=== PATIENT | male | born 1935 | race Caucasian/White ===

== ENCOUNTER 2016-12-31 15:53 | Emergency (ER) | payer MEDICARE, OTHER ==
[~2016-12-31 15:53] MED LIST: AMIT25 PO; CORDARONE PO; FLOMAX4 PO; FOLIC PO; HALF81 PO; HYDROCHLOROT25 MG PO; INDE60 PO; KLOR-CON M2020 MEQ PO; KLOR-CON20 MEQ PO; METAGLIP1 TA2 PO; METFORMIN; NIVOLUMAB IV; NORCO1 TAB PO; PRILO PO; Z300 PO; ZESTRIL20 MG PO; ZOCOR20 PO; [UNRECOGNIZED DRUG - OTHER]
[2016-12-31 16:00] LABS: BASOPHILS 0.1 %; BASOPHILS ABSOLUTE 0.01 10/3/uL (0.0-0.16); EOSINOPHILS 1.5 %; EOSINOPHILS ABSOLUTE 0.18 10/3/uL (0.0-0.53); ER CBC TAT 0 Hrs 12 Mins; HEMATOCRIT 37.7 % (40.0-51.0); HEMOGLOBIN 12.2 g/dL (13.6-17.8); IMMATURE GRANULOCYTES 0.6 %; IMMATURE GRANULOCYTES ABSOLUTE 0.07 10/3/uL (0.0-0.11); LYMPHOCYTES 17.3 %; LYMPHOCYTES ABSOLUTE 2.05 10/3/uL (0.67-4.30); MEAN CORPUS HGB CONC 32.4 g/dL (32.0-36.0); MEAN CORPUSCULAR VOLUME 92.9 fL (80-100); MONOCYTES 6.2 %; MONOCYTES ABSOLUTE 0.74 10/3/uL (0.21-1.20); NEUTROPHILS 74.3 %; PLATELET COUNT 168 10/3/uL (150-400); RBC DISTRIBUTION WIDTH 14.2 % (12.0-16.0); RED CELL COUNT 4.06 10/6/uL (4.7-6.1); WHITE BLOOD CELLS 11.9 10/3/uL (4.5-10.5)
[2016-12-31 16:01] LABS: MANUAL DIFF NO %
[2016-12-31 16:04] LABS: INTERNATIONAL NORMAL RATI 1.2 UNITS (-); PROTIME (NOT ORD) 14.6 SEC (12.0-14.5)
[2016-12-31 16:11] LABS: A/G RATIO 0.9 (0.7-1.9); ALBUMIN 3.6 G/DL (3.5-5.0); ALKALINE PHOSPHATASE 108 U/L (45-117); BUN (BLOOD UREA NITROGEN) 30 MG/DL (6-23); CALCIUM, SERUM 9.1 MG/DL (8.5-10.4); CHLORIDE, SERUM 105 MMOL/L (96-112); CO2 (CARBON DIOXIDE) 27 MMOL/L (24-34); CREATININE 1.48 MG/DL (0.70-1.30); GFR AFRICAN AMERICAN 51 ML/MIN (>=60); GFR NON AFRICAN AMERICAN 44 ML/MIN (>=60); GLOBULIN 3.8 G/DL (2.5-4.1); GLUCOSE, SERUM 94 MG/DL (60-99); POTASSIUM, SERUM 3.6 MMOL/L (3.5-5.3); SGOT(AST) 16 U/L (5-40); SGPT(ALT) 17 U/L (5-65); SODIUM, SERUM 144 MMOL/L (135-148); TOTAL PROTEIN 7.4 G/DL (6.0-8.5)
[2017-05-06] MEDS ORDERED: MARI2.5 PO (13:12)
[2017-05-06] MEDS ORDERED: AMB10 PO (13:14)
[2017-05-06] MEDS ORDERED: SUCR PO (13:21)
[2017-05-09] MEDS ORDERED: OMNICEF300 PO (15:27)
== END 2016-12-31 17:40 | disposition home or self-care (01) ==
LOC: ER 15:53
PROVIDERS: Emergency Medicine
DX: R51 Headache (principal); Z87.891 Personal history of nicotine dependence; I48.91 Unspecified atrial fibrillation; Z87.442 Personal history of urinary calculi; Z85.830 Personal history of malignant neoplasm of bone; Z85.118 Personal history of other malignant neoplasm of bronchus and lung; Z79.899 Other long term (current) drug therapy; Z79.82 Long term (current) use of aspirin; Z79.84 Long term (current) use of oral hypoglycemic drugs
CPT/HCPCS: 70470; 71010; 80053; 85025; 85610; 93005; 99285

== ENCOUNTER 2017-03-19 17:59 | Inpatient (IN) | payer MEDICARE, OTHER ==
--- NOTE | ~2017-03-19 | HP ---
History And Physical [place] [id number] [facility] [place]. [address] NAME: ADALI KAUR : 39 STATUS : ADM [place] PAT#: [id number] AGE: 81 ADM/REG DATE : 03/19/17 MR#: [id number] REPORT SERV DATE: 03/19/17 DICTATED BY: ARIELLE LUND DATE: 03/19/17 REPORT STATUS : Draft TRANSCRIBED BY: MODL DATE: 03/19/17 DATE OF ADMISSION: 03/19/2017 CHIEF COMPLAINT: A 81-year-old male presenting with back pain, dysuria, and nausea. HISTORY OF PRESENT ILLNESS: The patient's history was obtained through an interview with the patient, two sons and daughter coupled with review of [employer] and [facility] medical records. For about four days now, the patient has had decreased appetite with nausea, gagging, dry heaves but no actual vomiting. He has developed dysuria and urinary frequency. He admits that he has significant prostate symptoms including a feeling as if he is never quite completely emptying his bladder and slow urine flow with dribbling. He describes fevers, chills, sweats. He has been concerned about epigastric abdominal discomfort, "empty feeling" in quality that radiates down to his navel, 6/10 severity, associated with reflux symptoms and feeling of "knots" going up his esophagus with acid. 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 He has undergone chemotherapy and radiation followed by Dr. Alex Goodrich and Dr. Doshi, radiation oncologist. He has chronic shortness of breath, chronic nonproductive cough, and left sinus drainage; all these seem to be chronic and stable though. He does admit to constant lower back pain which he attributes to his metastatic lung cancer to his bones. It gets to a 10/10 constant pain for which he takes chronic pain medications. REVIEW OF SYSTEMS: Otherwise, a 14-point review of systems was obtained and was negative. PAST MEDICAL HISTORY: 1. Lung cancer diagnosed in 2015 status post chemotherapy radiation. This is an adenocarcinoma with metastases to the bone, followed by Dr. Doshi, radiation oncologist and Dr. Alex Goodrich, oncologist. 2. Diabetes. The patient states "I ran out of strips" so he is not sure how good control he has over his diabetes. He is on oral medications only. 3. Nephrolithiasis with history of lithotripsies and stent placement under the care of Dr. Lindsey. 4. Atrial fibrillation. 5. Hypertension. 6. Hypothyroidism. 7. Neuropathy. 8. Urinary tract infections, previously with Staph. 9. Superficial vein thrombosis. 10.Peptic ulcer disease. History And Physical [address] [address] NAME: ADALI KAUR : 37 STATUS : ADM [place] PAT#: [id number] AGE: 81 ADM/REG DATE : 03/19/17 MR#: [id number] REPORT SERV DATE: 03/19/17 DICTATED BY: ARIELLE LUND DATE: 03/19/17 REPORT STATUS : Draft TRANSCRIBED BY: IRON DATE: 03/19/17 11.Colon polyps. 12.Obstructive sleep apnea, on CPAP. 13.Gout. PAST SURGICAL HISTORY: 1. Cholecystectomy. 2. Right inguinal hernia repair. ALLERGIES: NO KNOWN DRUG ALLERGIES. SOCIAL HISTORY: Smoked between 18 years of age and 37 years of age, one pack per day but has quit since then. No alcohol abuse. Has been a for 14 years now. He lives in [place], [place] alone. Retired from sales. He has two sons and a daughter who live close. FAMILY HISTORY: Father with liver disease, a very strong family history of nephrolithiasis. CURRENT MEDICATIONS: Include allopurinol 300 mg p.o. daily, amiodarone 100 mg p.o. daily, Elavil 10 mg p.o. at bedtime, aspirin 81 mg p.o. daily, Temovate cream, Marinol 2.5 mg p.o. t.i.d., folic acid daily, Neurontin 300 mg p.o. t.i.d., glyburide/metformin 5/500 p.o. b.i.d., hydrochlorothiazide 25 mg p.o. daily, hydrocodone p.r.n., Synthroid 50 mcg p.o. daily, lisinopril 5 mg p.o. daily, Prilosec 20 mg p.o. daily, potassium 20 mEq p.o. daily, Phenergan, Inderal 60 mg p.o. at bedtime, Zocor 20 mg p.o. daily, and Flomax 0.4 mg p.o. daily. PHYSICAL EXAMINATION: VITAL SIGNS: Temperature 98.4, pulse 107, blood pressure 165/79, respiratory rate 20, and O2 saturation 94% on room air. GENERAL: A pleasant, cooperative male, in evidence of mild distress from back pain but he does not appear toxic. HEENT: Pupils are equal, round, and reactive to light. No conjunctival pallor. No scleral icterus. Nares are patent. Oropharynx is clear of obstruction. Dry mucous membranes. NECK: Trachea midline. No thyromegaly. LYMPH: No cervical lymphadenopathy. No supraclavicular lymphadenopathy. No inguinal lymphadenopathy. RESPIRATORY: Clear to auscultation at bases. No wheezes, rales, or rhonchi. Normal respiratory effort. CARDIOVASCULAR: Tachycardic regular rhythm. No murmurs, rubs, or gallops. No extremity edema is appreciated. ABDOMEN: Significant suprapubic abdominal discomfort and epigastric abdominal discomfort but no guarding, no rebound. Nondistended. No hepatosplenomegaly. DERMATOLOGICAL: Warm and dry extremities. No pallor. No cyanosis. PSYCHIATRIC: Normal affect. Good mood. Alert and oriented x3. LABORATORY DATA: White blood cell count 11.5, hemoglobin 13, hematocrit 38, platelets 212. Sodium 139, potassium 4.3, chloride 105, bicarb 26, BUN 14, creatinine 1.05, glucose 195. Urinalysis shows large leukocyte esterase with greater than 182 white blood cells. Troponin History And Physical [address] [address] NAME: AADLI KAUR : 37 STATUS : ADM [place] PAT#: [id number] AGE: 81 ADM/REG DATE : 03/19/17 MR#: [id number] REPORT SERV DATE: 03/19/17 DICTATED BY: ARIELLE LUND DATE: 03/19/17 REPORT STATUS : Draft TRANSCRIBED BY: MODL DATE: 03/19/17 0.20, INR 1.1. STUDIES: 1. Chest x-ray by my own evaluation shows no acute cardiopulmonary process. 2. EKG by my own evaluation shows sinus tachycardia, left ventricular hypertrophy. 3. 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 ASSESSMENT AND PLAN: 1. Urinary tract infection. Check urine culture. Place on IV antibiotics. For now, we will include IV vancomycin because of history of Staph urinary tract infections but also include IV Rocephin. Consult urologist Dr. Lindsey. There is no evidence of urinary obstruction by CT scan at least. 2. Metastatic lung adenocarcinoma to the bones with significant spine pain. Consult Dr. Alex Goodrich, oncologist. 3. Diabetes. Check hemoglobin A1c. Place on sliding scale insulin. 4. Atrial fibrillation, not on anticoagulation. Aspirin only. The patient is on amiodarone. Check telemetry. 5. Elevated troponin, possible stress response ?. Follow closely. Negative EKG. No chest pain. 6. Obstructive sleep apnea. Continue CPAP. KPL/MODL Arielle Lund M.D. / [id number] CC: Maricel Dasilva M.D. Davey B. Daniel, M.D.
--- NOTE | ~2017-03-19 | DS ---
Discharge Summary [facility] [address] [place]. [address] NAME: ADALI FERNANDES : 39 STATUS : DIS IN PAT#: [id number] AGE: 81 ADM/REG DATE : 03/19/17 MR#: [id number] REPORT SERV DATE: 03/22/17 DICTATED BY: ERMA ANGELES DATE: 03/21/17 REPORT STATUS : Draft TRANSCRIBED BY: MODL DATE: 03/21/17 ADMISSION DATE: 03/19/2017 DISCHARGE DATE: 03/21/2017 REASON FOR ADMISSION: UTI, increased pain, dizziness. HISTORY OF PRESENT ILLNESS: Please refer to Dr. Trenton Reddy's history and physical dated 03/19/2017 for complete details regarding the patient's admission. In brief, the patient was admitted to the Hospitalist Service for management of acute cystitis. HOSPITAL COURSE: The patient had an uncomplicated hospital course. He presented with a dirty urine and Dr. Reddy had started him on IV vancomycin because of a history of Staph urinary tract infections along with IV Rocephin. He had consulted his urologist, Dr. Lindsey. Dr. Hall was covering. The patient does have known history of nephroliths and Dr. Hall had recommended just continuing IV fluids, following up urine culture, and treating his BPH. The patient was started on Decadron for his complaint of worsening pain that was likely secondary to his metastatic disease. Physical Therapy had evaluated the patient and recommended home with home PT and a walker. After giving IV fluids, antibiotics, and pain control, the patient is feeling much better. He is actually requesting to go home today. He has reached maximal hospitalization. He will be discharged home in a stable condition. DISCHARGE DIAGNOSES: Acute cystitis with nephroliths; right lower quadrant pain, likely secondary to nephroliths; dizziness; gait abnormality; benign prostatic hypertrophy; stage IV non-small cell lung cancer, T2 N2 M1B, status post chemotherapy and radiation, followed by Dr. Alex Goodrich. PROCEDURE: Include consultation by Dr. Neto Hall, chest x-ray, CT scan of the abdomen and pelvis without contrast. DISCHARGE MEDICATIONS: Include allopurinol 300 mg daily, Elavil 10 mg at bedtime, aspirin 81 mg daily, amiodarone 100 mg at bedtime, Marinol 2.5 mg three times a day, folic acid 1 mg daily, gabapentin 300 mg three times a day, Synthroid 50 mcg daily, Prinivil 5 mg every day, Prilosec 20 mg daily, Inderal 60 mg daily, Zocor 20 mg at bedtime, Flomax 0.4 mg daily, hydrochlorothiazide 12.5 mg daily, [place] 10/325 p.r.n. pain, potassium chloride 20 mEq daily, Glucovance 5/500 one tablet twice a day, Phenergan p.r.n., Medrol Dosepak for six days, and doxycycline 100 mg twice a day for four days. FOLLOWUP: The patient will follow up with Dr. Alex Goodrich. We will arrange for home health and home PT along with a rolling walker. This is Dr. Erma Angeles spending over 30 minutes discharge planning and coordination of care of Mr. Fernandes. DICTATED BY: Erma Angeles MD Discharge Summary [address] [address] NAME: ADALI FERNANDSE : 37 STATUS : DIS IN PAT#: [id number] AGE: 81 ADM/REG DATE : 03/19/17 MR#: [id number] REPORT SERV DATE: 03/22/17 DICTATED BY: ERMA ANGELES DATE: 03/21/17 REPORT STATUS : Draft TRANSCRIBED BY: IRON DATE: 03/21/17 GILDARDO Erma Angeles MD / [id number] CC: MD Fernando Vazquez M.D. Davey B. Daniel, M.D.
--- NOTE | ~2017-03-19 | CN ---
Consultation Report [facility] [address] [place]. [address] NAME: ADALI FERNANDES : 39 STATUS : ADM IN [facility]#: [id number] AGE: 81 ADM/REG DATE : 03/19/17 MR#: [id number] REPORT SERV DATE: 03/20/17 DICTATED BY: MARCIAL JESSICA DATE: 03/20/17 REPORT STATUS : Draft TRANSCRIBED BY: MODL DATE: 03/20/17 INPATIENT CONSULTATION DATE OF CONSULTATION: 03/20/2017 REASON FOR CONSULTATION: Urinary tract infection. HISTORY OF PRESENT ILLNESS: Mr. Fernandes is a 81-year-old white gentleman with a past medical history of BPH and nephrolithiasis, treated by Dr. Lindsey, who unfortunately is also being managed for metastatic lung cancer. He was admitted through the hospital emergency department last evening with abdominal and flank pain. A thorough evaluation while in the emergency department revealed likely urinary tract infection. He had a CT of the abdomen and pelvis, which showed multiple nonobstructing bilateral intrarenal calculi without any acute findings. He was admitted to the hospital and started on vancomycin and Rocephin. More recently, he complains of some urinary hesitancy and slow urinary stream. He does take Flomax on a daily basis. He otherwise denies fever, chills, nausea, or vomiting. PAST MEDICAL HISTORY: Obstructive sleep apnea, atrial fibrillation, diabetes, metastatic lung cancer, nephrolithiasis, urinary tract infections, history of staphylococcus UTIs, hypertension, thyroid difficulties, arthritis. PAST SURGICAL HISTORY: As above. Cholecystectomy and right cataract. SOCIAL HISTORY: . Lives alone. Past smoker. Does not use alcohol or illicit drugs. FAMILY HISTORY: No urologic problems. HOME MEDICATIONS: Zyloprim, amiodarone, Elavil, aspirin, Temovate cream, Marinol, folic acid, Neurontin, Glucovance, hydrochlorothiazide, [place], Synthroid, Prinivil, Prilosec, potassium chloride, Phenergan, Inderal, Zocor, tamsulosin. ALLERGIES: NO KNOWN DRUG ALLERGIES. REVIEW OF SYSTEMS: Thorough 13-point review of systems was performed by me and if not noted to be positive in the history of present illness or past medical history, is negative. PHYSICAL EXAMINATION: GENERAL: Elderly gentleman, in no distress. VITAL SIGNS: Admission vitals, temperature 98.4, pulse 107, respirations 20, blood pressure 165/79. HEENT: Normocephalic and atraumatic. Eyes are anicteric. Nares are patent. Oropharynx is clear. NECK: Supple. Consultation Report [address] [place]. [address] NAME: ADALI FERNANDES : 39 STATUS : ADM IN [facility]#: [id number] AGE: 81 ADM/REG DATE : 03/19/17 MR#: [id number] REPORT SERV DATE: 03/20/17 DICTATED BY: MARCIAL JESSICA DATE: 03/20/17 REPORT STATUS : Draft TRANSCRIBED BY: IRON DATE: 03/20/17 HEART: Regular rate and rhythm. ABDOMEN: Protuberant. No involuntary guarding or rebound. No CVA tenderness. INTEGUMENT: Warm. MUSCULOSKELETAL: Moves all extremities well. NEUROLOGIC: No focal deficits. PSYCHIATRIC: Pleasant and appropriate. LABORATORY DATA: White blood cell count 11,500. Creatinine 1.05, glucose 195. Urinalysis, 6 red blood cells, greater than 182 white blood cells per high-power field. Urine cultures pending. IMAGING: Please see my impressions regarding the CT of the abdomen and pelvis as above. ASSESSMENT: 1. Urinary tract infection. 2. Nephrolithiasis, nonobstructing. 3. Benign prostatic hypertrophy with obstruction. PLAN: I discussed this with the patient and his nurse. We can check a bladder scan and postvoid residual to ensure that he is emptying his bladder. Otherwise, I would await his final urine cultures and continue on presumptive antibiotics until those cultures are back. RAC/BELLAL Marcial Jessica M.D. / [id number] CC: MD Fernando Vazquez M.D. Paul Henson III, M.D.
[2017-03-19 16:45] LABS: BASOPHILS 0.2 %; BASOPHILS ABSOLUTE 0.02 10/3/uL (0.0-0.16); EOSINOPHILS 0.8 %; EOSINOPHILS ABSOLUTE 0.09 10/3/uL (0.0-0.53); ER CBC TAT 0 Hrs 09 Mins; HEMATOCRIT 38.5 % (40.0-51.0); HEMOGLOBIN 12.7 g/dL (13.6-17.8); IMMATURE GRANULOCYTES 0.6 %; IMMATURE GRANULOCYTES ABSOLUTE 0.07 10/3/uL (0.0-0.11); MEAN CORPUSCULAR HEMOGLOB 29.6 pg (26.0-34.0); MEAN PLATELET VOLUME 10.7 fL (9.2-13.0); MONOCYTES 6.3 %; MONOCYTES ABSOLUTE 0.73 10/3/uL (0.21-1.20); NEUTROPHILS 79.1 %; NEUTROPHILS ABSOLUTE 9.11 10/3/uL (2.02-8.40); PLATELET COUNT 212 10/3/uL (150-400); RBC DISTRIBUTION WIDTH 13.7 % (12.0-16.0); RED CELL COUNT 4.29 10/6/uL (4.7-6.1); WHITE BLOOD CELLS 11.5 10/3/uL (4.5-10.5)
[2017-03-19 16:46] LABS: MANUAL DIFF NO %; MEAN CORPUSCULAR VOLUME 89.7 fL (80-100)
[2017-03-19 16:53] LABS: INTERNATIONAL NORMAL RATI 1.1 UNITS (-); PARTIAL THROMBO TIME 24.9 SEC (22.5-37.2); PROTIME (NOT ORD) 14.1 SEC (12.0-14.5)
[2017-03-19 17:00] LABS: BUN (BLOOD UREA NITROGEN) 14 MG/DL (6-23); CALCIUM, SERUM 9.6 MG/DL (8.5-10.4); CHLORIDE, SERUM 105 MMOL/L (96-112); CO2 (CARBON DIOXIDE) 26 MMOL/L (24-34); CREATININE 1.05 MG/DL (0.70-1.30); GFR AFRICAN AMERICAN 78 ML/MIN (>=60); GFR NON AFRICAN AMERICAN 67 ML/MIN (>=60); POTASSIUM, SERUM 4.3 MMOL/L (3.5-5.3); SODIUM, SERUM 139 MMOL/L (135-148)
[2017-03-19 17:01] LABS: CHEST PAIN PROFILE TAT 0 Hrs 25 Mins; GLUCOSE, SERUM 195 MG/DL (60-99)
[2017-03-19 18:19] LABS: ASCORBIC ACID (UR NOT ORDER) NEG (NEG); BILIRUBIN, URINE NEGATIVE (NEG); KETONE, URINE TRACE MG/DL (NEG); LEUKOCYTE ESTERASE(NOT OR LARGE (NEG); NITRITE (URINE) NEG (NEG)
[2017-03-19 18:22] LABS: ALBUMIN 3.7 G/DL (3.5-5.0); CPK 60 U/L (0-200); DIRECT BILIRUBIN 0.1 MG/DL (0.0-0.4); SGOT(AST) 24 U/L (5-40); SGPT(ALT) 22 U/L (5-65); TOTAL PROTEIN 7.7 G/DL (6.0-8.5)
[2017-03-19 18:22] LABS: ER URINALYSIS TAT 0 Hrs 33 Mins; WBC (NOT ORDERED) (RFLEX) > 182 (0-5)
[2017-03-19 18:23] LABS: ALKALINE PHOSPHATASE 144 U/L (45-117); CK-MB 0.8 NG/ML; INDIRECT BILIRUBIN(NOT ORDER) 0.4 MG/DL (0.1-0.9); TOTAL BILIRUBIN 0.5 MG/DL (0-1.2)
[2017-03-19] MEDS ORDERED: NEUR300 PO (19:46)
[2017-03-19] MEDS ORDERED: METAGLIP1 TA2 PO (19:46)
[2017-03-19] MEDS ORDERED: SYN.05 PO (19:47)
[2017-03-19] MEDS ORDERED: MARI2.5 PO (19:48)
[2017-03-19] MEDS ORDERED: TEMOVATE CREAM30 GM TOP (19:50)
[2017-03-19] MEDS ORDERED: PR25 PO (19:50)
[2017-03-20 04:33] LABS: BASOPHILS 0.3 %; BASOPHILS ABSOLUTE 0.03 10/3/uL (0.0-0.16); EOSINOPHILS 2.1 %; EOSINOPHILS ABSOLUTE 0.22 10/3/uL (0.0-0.53); HEMOGLOBIN 10.9 g/dL (13.6-17.8); IMMATURE GRANULOCYTES 0.4 %; IMMATURE GRANULOCYTES ABSOLUTE 0.04 10/3/uL (0.0-0.11); LYMPHOCYTES 22.2 %; LYMPHOCYTES ABSOLUTE 2.36 10/3/uL (0.67-4.30); MEAN CORPUS HGB CONC 32.7 g/dL (32.0-36.0); MEAN CORPUSCULAR HEMOGLOB 29.6 pg (26.0-34.0); MEAN CORPUSCULAR VOLUME 90.5 fL (80-100); MEAN PLATELET VOLUME 10.7 fL (9.2-13.0); MONOCYTES 8.5 %; NEUTROPHILS 66.5 %; NEUTROPHILS ABSOLUTE 7.07 10/3/uL (2.02-8.40); PLATELET COUNT 180 10/3/uL (150-400); RBC DISTRIBUTION WIDTH 13.9 % (12.0-16.0); RED CELL COUNT 3.68 10/6/uL (4.7-6.1); WHITE BLOOD CELLS 10.6 10/3/uL (4.5-10.5)
[2017-03-20 04:34] LABS: HEMATOCRIT 33.3 % (40.0-51.0); MANUAL DIFF NO %
[2017-03-20 04:40] LABS: INTERNATIONAL NORMAL RATI 1.2 UNITS (-); PARTIAL THROMBO TIME 32.2 SEC (22.5-37.2); PROTIME (NOT ORD) 14.8 SEC (12.0-14.5)
[2017-03-20 04:56] LABS: A/G RATIO 0.9 (0.7-1.9); ALBUMIN 2.9 G/DL (3.5-5.0); BUN (BLOOD UREA NITROGEN) 13 MG/DL (6-23); CALCIUM, SERUM 8.2 MG/DL (8.5-10.4); CHLORIDE, SERUM 110 MMOL/L (96-112); CO2 (CARBON DIOXIDE) 25 MMOL/L (24-34); CREATININE 0.94 MG/DL (0.70-1.30); GFR AFRICAN AMERICAN 89 ML/MIN (>=60); GFR NON AFRICAN AMERICAN 77 ML/MIN (>=60); GLOBULIN 3.1 G/DL (2.5-4.1); GLUCOSE, SERUM 128 MG/DL (60-99); SGOT(AST) 17 U/L (5-40); SGPT(ALT) 16 U/L (5-65); SODIUM, SERUM 143 MMOL/L (135-148); TOTAL BILIRUBIN 0.5 MG/DL (0-1.2)
[2017-03-20 04:57] LABS: ALKALINE PHOSPHATASE 111 U/L (45-117); TROPONIN I 0.16 NG/ML (<0.05)
[2017-03-20 05:19] LABS: B NATRIURETIC PEPTIDE (BNP) 50.6 PG/ML (< 100.0)
[2017-03-20 13:15] LABS: GLYCOHEMOGLOBIN (HbA1c) 7.2 % (4.7-6.1)
[2017-03-21] MEDS ORDERED: MEDROLPAK4 PO (14:53)
[2017-03-21] MEDS ORDERED: MONODOX100 MG PO (14:53)
[2017-05-06] MEDS ORDERED: MARI2.5 PO (13:12)
[2017-05-06] MEDS ORDERED: AMB10 PO (13:14)
[2017-05-06] MEDS ORDERED: SUCR PO (13:21)
[2017-05-09] MEDS ORDERED: OMNICEF300 PO (15:27)
== END 2017-03-21 16:37 | disposition home health service (06) | DRG 690 ==
LOC: ER 17:59 → 5NO 19:36
PROVIDERS: Emergency Medicine; Hospitalist; Physician Assistant
DX: N30.00 Acute cystitis without hematuria (principal); C79.51 Secondary malignant neoplasm of bone; C34.90 Malignant neoplasm of unspecified part of unspecified bronchus or lung; I48.91 Unspecified atrial fibrillation; Z99.81 Dependence on supplemental oxygen; E11.9 Type 2 diabetes mellitus without complications; G47.33 Obstructive sleep apnea (adult) (pediatric); N20.0 Calculus of kidney; Z92.21 Personal history of antineoplastic chemotherapy; Z79.82 Long term (current) use of aspirin; Z87.442 Personal history of urinary calculi; Z66 Do not resuscitate; Z87.440 Personal history of urinary (tract) infections; Z79.84 Long term (current) use of oral hypoglycemic drugs; Z87.891 Personal history of nicotine dependence
CPT/HCPCS: 71010; 74000; 74176; 80048; 80053; 80076; 81001; 81003; 82550; 82553; 82962; 83036; 83735; 83880; 84443; 84484; 85025; 85610; 85730; 87086; 93005; 97161-GP; 99285; A9270-GY; G0463; G8978-CJ-GP; G8979-CI-GP; J2405; J3370